=== PATIENT | female | born 1995 | race Caucasian/White ===

== ENCOUNTER 2021-11-19 09:21 | Inpatient (IN) | payer MEDICAID ==
[~2021-11-19] VITALS: Ht 154.9 cm; Wt 79.1 kg
[~2021-11-19 09:21] MED LIST: PERCOCET 325 MG1 TA2 PO; ULTRAM 50MG TAB50 MG PO
[2021-11-20] VITALS (18 sets, daily range): BP systolic 71–125; BP diastolic 33–78; PULSE 59–92; TEMP 97.8–98.1
--- NOTE | 2021-11-20 05:35 | NUR ---
0535 ADM TO 213 FOR REPEAT C/SECT. EFM ON, PERMITS SIGNED AND IV STARTED.
[2021-11-20 06:09] LABS: BASO % 0.3 % (0.0-2.0); EOS # 0.1 K/mm3 (0.0-0.7); EOS % 1.1 % (0.0-4.0); GRAN # 7.8 K/mm3 (1.4-6.5); LYMPH # 2.5 K/mm3 (1.2-3.4); LYMPH % 22.1 % (20.0-51.0); MEAN CELL VOLUME 85 fl (80.0-100.0); MEAN CORPUSCULAR HEMOGLOBIN 29 pg (27-31); MEAN CORPUSCULAR HGB CONC 34 g/dl (33.0-37.0); MEAN PLATELET VOLUME 10.3 fl (7.4-10.4); MONO # 0.7 K/mm3 (0.1-0.6); PLATELET COUNT 330 K/mm3 (130-400); RED BLOOD COUNT 4.19 M/mm3 (4.10-5.30); REDCELL DISTRIBUTION WIDTH-CV 13.1 % (11.5-14.5)
[2021-11-20 06:16] LABS: HEMATOCRIT 35.8 % (37.0-47.0)
[2021-11-20] MEDS ORDERED: PRENATAL TABLET PO (06:37)
[2021-11-20] MEDS ORDERED: TAMIFLU 75MG75 MG PO (06:37)
[2021-11-20] MEDS ORDERED: PROAIR HFA0.09 MG/AC IH (06:39)
--- NOTE | 2021-11-20 13:45 | NUR ---
1345- ABD dressing 80% saturated with bright red blood. Dressing changed. Small area noted on right side of incision that oozes when manipulated. ABD pad on with pressure dressing on. ABD binder on tightly. Will monitor.
[2021-11-21 01:20] VITALS: BP 120/67; PULSE 68
[2021-11-21 08:00] VITALS: BP 101/69; PULSE 72; TEMP 97.5
--- NOTE | 2021-11-21 13:00 | NUR ---
Signals Collector/Analyst offered congrats to patient.
[2021-11-21 16:10] VITALS: BP 108/69; PULSE 72; TEMP 97.5
[2021-11-21 19:25] VITALS: BP 118/86; PULSE 76; TEMP 97.8
[2021-11-22 08:52] VITALS: BP 122/72; PULSE 81; TEMP 97.5
[2021-11-22] MEDS ORDERED: IBU600 MG PO (09:40)
[2021-11-22] MEDS ORDERED: PERCOCET 325 MG1 TA2 PO (09:41)
[2021-11-22 16:45] VITALS: BP 109/83; PULSE 79; TEMP 99.3
[2021-11-22 21:00] VITALS: BP 120/74; PULSE 76; TEMP 98
[2021-11-23 08:00] VITALS: BP 118/80; PULSE 92; TEMP 98.1
== END 2021-11-23 12:00 | disposition home or self-care (01) | DRG 788 ==
LOC: OB 11-20 01:01
PROVIDERS: ADMIT Obstetrics & Gynecology
PROC: 10D00Z1 Extraction of Products of Conception, Low, Open Approach (ICD-10-PCS; principal; 2021-11-20)
PROC: 0UN50ZZ Release Right Fallopian Tube, Open Approach (ICD-10-PCS; 2021-11-20)
DX: O34.211 Maternal care for low transverse scar from previous cesarean delivery (principal); O34.29 Maternal care due to uterine scar from other previous surgery; O43.123 Velamentous insertion of umbilical cord, third trimester; O99.52 Diseases of the respiratory system complicating childbirth; J45.909 Unspecified asthma, uncomplicated; O99.343 Other mental disorders complicating pregnancy, third trimester; F90.9 Attention-deficit hyperactivity disorder, unspecified type; Z3A.39 39 weeks gestation of pregnancy; Z37.0 Single live birth; Z86.16 Personal history of COVID-19
CPT/HCPCS: J0690; J1100; J1885; J2370; J2405; J2590; J7120

== ENCOUNTER 2022-02-11 15:00 | Emergency (ER) | payer MEDICAID ==
[~2022-02-11] VITALS: Ht 154.9 cm; Wt 69.1 kg
[~2022-02-11 15:00] MED LIST changes: +IBU600 MG PO; +PRENATAL TABLET PO; +PROAIR HFA0.09 MG/AC IH; +TAMIFLU 75MG75 MG PO; +VYVANSE30 MG PO; +ZOLOFT 50MG50 MG PO
[2022-02-11 15:21] VITALS: BP 108/77; PULSE 70; TEMP 97.2
[2022-02-11 15:51] LABS: COLLECTION METHOD CATHETER
[2022-02-11 15:59] LABS: MUCOUS Present (NOT PRESENT); PH 6 (5-8); SQUAMOUS EPITHELIAL 0-2 /hpf (0-10); URINE APPEARANCE Clear (CLEAR/HAZY); URINE BACTERIA None Seen /hpf (NONE SEEN); URINE BILIRUBIN Negative (NEGATIVE); URINE BLOOD Negative (NEGATIVE); URINE COLOR Straw (YELLOW); URINE GLUCOSE Negative (NEGATIVE); URINE KETONE Negative (NEGATIVE); URINE LEUKOCYTE ESTERASE Negative (NEGATIVE); URINE NITRATE Negative (NEGATIVE); URINE PROTEIN(semi-quant) Negative (NEGATIVE); URINE RBC 0-2 /hpf (0-2); URINE UROBILINOGEN Negative (NEGATIVE)
[2022-02-11 16:15] LABS: BASO # 0.1 K/mm3 (0.0-0.2); BASO % 0.5 % (0.0-2.0); EOS # 0.2 K/mm3 (0.0-0.7); EOS % 1.6 % (0.0-4.0); GRAN # 7.8 K/mm3 (1.4-6.5); GRAN % 72.5 % (42.2-75.2); HEMATOCRIT 38.3 % (37.0-47.0); HEMOGLOBIN 12.3 g/dl (12.5-16.0); LYMPH # 2.1 K/mm3 (1.2-3.4); MEAN CELL VOLUME 89 fl (80.0-100.0); MEAN CORPUSCULAR HEMOGLOBIN 29 pg (27-31); MEAN CORPUSCULAR HGB CONC 32 g/dl (33.0-37.0); MEAN PLATELET VOLUME 10.4 fl (7.4-10.4); MONO # 0.5 K/mm3 (0.1-0.6); MONO % 5.1 % (1.7-9.3); PLATELET COUNT 363 K/mm3 (130-400); RED BLOOD COUNT 4.32 M/mm3 (4.10-5.30); REDCELL DISTRIBUTION WIDTH-CV 13.5 % (11.5-14.5)
[2022-02-11 16:23] LABS: ALBUMIN 3.4 gm/dL (3.5-5.0); BILIRUBIN,TOTAL 0.4 mg/dL (0.2-1.2); CALCIUM 8.7 mg/dL (8.4-10.2); CREATININE, serum 0.69 mg/dL (0.57-1.11); POTASSIUM 4.1 mmol/L (3.5-4.5); TOTAL PROTEIN 6.2 gm/dL (6.2-8.1)
== END 2022-02-11 16:52 | disposition left against medical advice (07) ==
LOC: COL.ER 15:00
PROVIDERS: Nurse Practitioner
DX: N93.9 Abnormal uterine and vaginal bleeding, unspecified (principal); Z97.5 Presence of (intrauterine) contraceptive device

== ENCOUNTER 2022-03-09 11:20 | Emergency (ER) | payer MEDICAID ==
[~2022-03-09] VITALS: Ht 154.9 cm; Wt 70.0 kg
[2022-03-09 11:45] VITALS: BP 127/74; PULSE 82; TEMP 98.2
[2022-03-09] MEDS ORDERED: AMOXICILLIN 8751 TAB PO (12:11)
== END 2022-03-09 12:19 | disposition home or self-care (01) ==
LOC: COL.ER 11:20 → EDSTATUS 12:04 → COL.ER 12:19
DX: T81.33XA Disruption of traumatic injury wound repair, initial encounter (principal); X58.XXXA Exposure to other specified factors, initial encounter; Y92.512 Supermarket, store or market as the place of occurrence of the external cause; Y99.0 Civilian activity done for income or pay